=== PATIENT | female | born 1940 | race Caucasian/White ===

== ENCOUNTER 2017-07-05 14:18 | Emergency (ER) | payer OTHER ==
[~2017-07-05] VITALS: Ht 160 cm; Wt 57.6 kg
--- NOTE | 2017-07-05 16:50 | ED EYE COMPLAINT ---
History of Present Illness General Chief Complaint: Eye Problems Stated Complaint: SPLASHED BLEACH INTO LT EYE Source: patient, family, old records Exam Limitations: no limitations Vital Signs & Intake/Output Vital Signs & Intake/Output Vital Signs Date Time Temp Pulse Resp B/P B/P Pulse O2 O2 Flow FiO2 Mean Ox Delivery Rate 07/05 1715 98.3 74 16 128/74 99 Room Air 07/05 1421 97.9 76 16 132/75 96 Room Air Allergies Coded Allergies: NO KNOWN ALLERGIES (08/11/10) Reconcile Medications Ketorolac Tromethamine (Acular) 0.5 % DROPS 1 GTT OPH 4 TIMES/DAY pain Polytrim (Polytrim Eye Drops) 10,000 UNIT-1 MG/ML DROPS 1 GTT OPH Q6 corneal inj Triage Note: PT STATES THAT SHE DROPPED A BOTTLE OF BLEACH AND IT SPLASHED UP INTO HER L EYE, PT RINSED EYE AND THEN DROVE TO EYE DR AND HE WAS OUT TO LUNCH SO STAFF TOLD HER TO COME TO ER. COMPLAINS OF BURNING TO EYE AND SLIGHT BLURRINESS Triage Nurses Notes Reviewed? yes Onset: Abrupt Duration: hour(s): (3), constant Timing: recent history Injury Environment: home Severity: mild Severity Numbers: 5 No Modifying Factors: none Left Eye Associated Symptoms: burning, itching Right Eye Associated Symptoms: denies HPI: 76-year-old female no medical history presents to ER for evaluation after accidentally splashing bleach in her eye earlier today. She states that the bleach bottle fell to the ground and splashed up and got in her eyes she does not wear glasses or contacts only wears glasses with reading. She states since then she's had redness and burning pain to her eyes she merely washed it out. She is not taken anything for the pain no loss of vision however she does report a blurry vision secondary to tearing. No right eye symptoms there was no other injury (Logan Holt) Past History Travel History Traveled to [place] past 21 day No Medical History Any Pertinent Medical History? none Neurological: NONE EENT: NONE Cardiovascular: NONE Respiratory: NONE Gastrointestinal: NONE Hepatic: NONE Renal: NONE Musculoskeletal: NONE Psychiatric: NONE Endocrine: NONE Blood Disorders: NONE Cancer(s): NONE DIRECTOR COMMUNITY ORGANIZATION/Reproductive: NONE Surgical History Surgical History: none Psychosocial History What is your primary language Macedonian Tobacco Use: Never used ETOH Use: denies use Illicit Drug Use: denies illicit drug use Family History Hx Contributory? No (Logan Holt) Review of Systems Review of Systems Constitutional: Reports: no symptoms, see HPI. All Other Systems: Reviewed and Negative Comments Review of systems: See HPI, All other systems negative. Constitutional, no chills no fever HEENT: no sore throat no congestion Cardiovascular: No chest pain , no palpitation Skin: no rashes, no change in skin Respiratory: No dyspnea no cough GI: No nausea no vomiting, Muscle skeletal: No joint pain, no back pain, no neck pain, Neurologic: , no headache Heme/endocrine: No bruising (Logan Holt) Physical Exam General Appearance: well developed/nourished General Inspection: normal inspection Eyelid: normal inspection, everted for exam Conjunctiva/Sclera: injected Cornea: normal inspection, examined w/fluorescein EOM: intact Pupil: normal accommodation, normal pupil, PERRL General Inspection: normal inspection Eyelid: normal inspection Conjunctiva/Sclera: normal inspection Cornea: normal inspection EOM: intact Pupil: normal accommodation, normal pupil, PERRL Physical Exam Comments: Well-developed well-nourished patient in no apparent distress. HEENT: Atraumatic, extraocular motion intact Neck: Supple, FROM Back: FROM Respiratory: No respiratory distress. Patient speaking in full complete sentences Extremities: full range of motion Neuro: awake, alert, and oriented to person, place and time. There were no obvious focal neurologic abnormalities. Skin: Warm & dry;No appreciable rash on exposed skin Psych: Mood affect normal, normal memory normal judgment. (Logan Holt) Progress Differential Diagnosis: corneal abrasion, corneal foreign body, conjunctivitis, detached retina, corneal burn Plan of Care: The eye was anesthetized with tetracaine drops, pH is 7, I was examined under fluroscein. The eyelids were everted a Q-tip was run under both. I discussed with the patient at length all of their results. I had an extensive conversation regarding need for close follow up with their primary care physician/ophthalmology this week as well as return precautions. I answered all of their questions, they feel comfortable with the plan and follow-up care. I discussed with Ivania the possibility of foreign body not seen on examination still exists. I discussed with the patient the medications that they will receive. I gave them signs and symptoms that could indicate an adverse reaction. I have advised them to limit their activities until they can see how they respond to the medication. (Logan Holt) Departure Departure Time of Disposition: 1712 Disposition: HOME OR SELF CARE Condition: Stable Clinical Impression Primary Impression: Chemical exposure of eye Referrals: Tomas KOTHARI,Phan Anand (PCP/Family) Kennedy KOTHARI,Andrea Patino Additional Instructions: Follow-up with assessment analyst affiliated with [facility] if symptoms persist. Cool compresses Polytrim eyedrops for prophylaxis. ACULAR for pain. Return to ER anytime sooner with any concerns. Departure Forms: Customer Survey General Discharge Information Prescriptions: Current Visit Scripts Polytrim (Polytrim Eye Drops) 1 GTT OPH Q6 #10 ML Ketorolac Tromethamine (Acular) 1 GTT OPH 4 TIMES/DAY #5 ML (Logan Holt) PA/PERSONAL FINANCIAL COUNSELOR Co-Sign Statement Statement: ED Attending supervision documentation- x I saw and evaluated the patient. I have also reviewed all the pertinent lab results and diagnostic results. I agree with the findings and the plan of care as documented in the PA's/PERSONAL FINANCIAL COUNSELOR's documentation. [] I have reviewed the ED Record and agree with the PA's/PERSONAL FINANCIAL COUNSELOR's documentation. [] Additions or exceptions (if any) to the PAs/PERSONAL FINANCIAL COUNSELOR's note and plan are summarized below: [] (Lisa KOTHARI,Osvaldo)
[2017-07-05] MEDS ORDERED: ACULAR5 ML OPH (17:14)
[2017-07-05] MEDS ORDERED: POLYTRIM EYE DR10 ML OPH (17:14)
[2017-07-05 17:15] VITALS: BP 128/74
== END 2017-07-05 17:36 ==
LOC: ERH 14:18
DX: Z77.098 Contact with and (suspected) exposure to other hazardous, chiefly nonmedicinal, chemicals (principal)